=== PATIENT | female | born 1970 | race Caucasian/White ===

== ENCOUNTER 2018-05-31 02:04 | Observation (INO) | payer BC ==
[2018-05-31] MEDS ORDERED: BABY ASPIRIN 81 MG CHEW PO ONE (02:26)
[2018-05-31 02:31] LABS: BASOPHIL % 1.5 % (0.0-0.4); Basophil (Absolute #) 0.12 (0-0.4); Eosinophil % 1.6 % (0.00-5.0); Eosinophil (Absolute #) 0.13 (0-0.5); Granulocyte Absolute (ANC) 4.55 (1.4-6.9); Granulocytes % 55.1 % (36.0-66.0); Hematocrit 34.3 % (35-47); Hemoglobin 10.7 gm/dl (12.0-16.0); Lymphocyte (Absolute #) 2.76 (1.0-4.6); Lymphocytes % 33.5 % (24.0-44.0); Mean Corpuscular Hgb Concent. 31.2 g/dl (32-36); Mean Platelet Volume 9.3 fl (6-9.5); Monocyte (Absolute #) 0.68 (0.0-1.3); Monocytes % 8.3 % (0.0-12.0); Platelet Count 220 K/mm3 (150-450); Red Blood Count 3.77 M/mm3 (4.1-5.4); Red Cell Distribution Width 15.3 % (11.5-14.0); White Blood Count 8.2 K/mm3 (4.0-10.5)
--- NOTE | 2018-05-31 02:32 | ERPHSYRPT ---
- History of Present Illness Time Seen by Provider: 05/31/18 02:27 Historian: patient Exam Limitations: no limitations Physician History: 47-year-old white female with history of gastric bypass arrives with complaint of a pain in her correction right upper quadrant, low chest region radiating up her sternum symptoms have been intermittent for the past 3 months. However today they have been going on since 7:30 this morning. Patient states she has had vomiting she has been short of breath. Patient states pain has been constant. She states the pain radiates to her back. Past medical history patient denies heart problems high blood pressure diabetes kidney problems she states she has no liver problems or cancer. Past surgical history includes gastric bypass, 2, hysterectomy. Social history positive tobacco use patient denies alcohol or illicit drug use. Timing/Duration: other (pain intermittent for the past 2-3 months , she states the pain began today at 7:30 AM and has been essentially constant.) Activities at Onset: none Quality: aching Location: other (right upper quadrant radiating to sternal area and back) Chest Pain Radiation: back Severity of Pain-Max: moderate Severity of Pain-Current: moderate Modifying Factors: Improves With: nothing Associated Symptoms: nausea, vomiting, abdominal pain (right upper quadrant pain ), back pain, No palpitations, No heartburn, No shortness of breath, No cough, No hurts to breathe, No diaphoresis, No chills, No fever, No fatigue, No weakness, No swelling/lump in chest, No syncope, No rash, No headache, No dizziness, No edema Prior Chest Pain/Cardiac Workup: recently seen/treated (patient seen recently by her family doctorfor the same) Nitro Today/Relief: no nitro taken today Aspirin Treatment Today: 81 mg x 4, provided by ED Allergies/Adverse Reactions: No Known Drug Allergies Allergy (Unverified 05/31/18 02:32) Home Medications: Fluoxetine HCl 20 mg [Prozac 20 MG] 20 mg PO DAILY 05/31/18 [History] Hydrocodone Bit/Acetaminophen [[place] 7.5-325 Tablet] 1 tab PO BID PRN 05/31/18 [ History] Lorazepam 0.5 mg [Ativan 0.5 MG] 0.5 mg PO DAILY PRN PRN 05/31/18 [History ] - Review of Systems Constitutional: No Fever, No Chills Eyes: No Symptoms Ears, Nose, & Throat: No Symptoms Respiratory: Dyspnea, No Cough Cardiac: Chest Pain, No Edema, No Syncope Abdominal/Gastrointestinal: Abdominal Pain (right upper quadrant abdominal pain) , Nausea, Vomiting, No Diarrhea, No Constipation, No Hematemesis, No Hematochezia, No Melena, No Dysphagia, No Appetite Changes Genitourinary Symptoms: No Dysuria Musculoskeletal: No Back Pain, No Neck Pain Skin: No Rash Neurological: No Dizziness, No Focal Weakness, No Sensory Changes Psychological: No Symptoms Endocrine: No Symptoms All Other Systems: Reviewed and Negative - Past Medical History Pertinent Past Medical History: Yes Other Medical History: history of gastric bypass - Past Surgical History Gastrointestinal: Other (gastric bypass) Female Surgical History: Hysterectomy, Section - Social History Smoking Status: Current every day smoker - Nursing Vital Signs Nursing Vital Signs: Initial Vital Signs Temperature 97.4 F 05/31/18 02:04 Pulse Rate 62 05/31/18 02:04 Respiratory Rate 12 05/31/18 02:04 Blood Pressure 145/83 05/31/18 02:04 O2 Sat by Pulse Oximetry 100 05/31/18 02:04 Pain Scale Pain Intensity 7 - Physical Exam General Appearance: moderate distress, alert Eye Exam: PERRL/EOMI, eyes nml inspection Ears, Nose, Throat Exam: normal ENT inspection, moist mucous membranes Neck Exam: normal inspection, non-tender, supple, full range of motion Respiratory Exam: normal breath sounds, lungs clear, No respiratory distress Cardiovascular Exam: regular rate/rhythm, normal heart sounds, normal peripheral pulses, capillary refill <2 sec, No murmur, No friction rub, No gallop, No tachycardia, No bradycardia, No irregular, No edema Gastrointestinal/Abdomen Exam: soft, normal bowel sounds, tenderness (right upper quadrant and epigastric tenderness), No distention, No mass, No guarding, No ecchymosis, No pulsatile mass, No rebound, No hernia, No hepatomegaly, No organomegaly, No splenomegaly Back Exam: normal inspection, No CVA tenderness, No vertebral tenderness Extremity Exam: normal inspection, normal range of motion Neurologic Exam: alert, oriented x 3, cooperative, 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, normal mood/affect, sensation nml, No motor deficits Skin Exam: normal color, warm, dry SpO2 Interpretation: normal (94%) - Course Nursing assessment & vital signs reviewed: Yes EKG Interpreted by Me: RATE (60 bpm), NORMAL AXIS, Other (EKG: Sinus arrhythmia , 60 bpm, normal axis, no acute ST or T wave changes, normal EKG) - Radiology Exams Chest X-ray Interpretation: Interpreted by me (no acute disease process noted) Ordered Tests: Active Orders 24 hr Category Date Time Status Veterans Contact Representative STAT Care 05/31/18 02:13 Active EKG-ER Only STAT Care 05/31/18 02:13 Active IV Insertion STAT Care 05/31/18 02:13 Active Pulse Oximetry (ED) STAT Care 05/31/18 02:13 Active CHEST 1 VIEW (PORTABLE) Stat Exams 05/31/18 03:06 Ordered AMYLASE Stat Lab 05/31/18 02:30 Completed CBC W DIFF Stat Lab 05/31/18 02:30 Completed CMP Stat Lab 05/31/18 02:30 Completed D-DIMER QUANTITATION Stat Lab 05/31/18 02:30 Completed LIPASE Stat Lab 05/31/18 02:30 Completed PROTIME WITH INR Stat Lab 05/31/18 02:30 Completed PTT Stat Lab 05/31/18 02:30 Completed TROPONIN Q3H Lab 05/31/18 02:30 Completed TROPONIN Q3H Lab 05/31/18 05:15 Ordered TROPONIN Q3H Lab 05/31/18 08:15 Ordered TROPONIN Q3H Lab 05/31/18 11:15 Ordered TROPONIN Q3H Lab 05/31/18 14:15 Ordered Medication Summary Discontinued Medications Generic Name Dose Route Start Last Admin Trade Name Freq PRN Reason Stop Dose Admin Aspirin 324 mg 05/31/18 02:26 05/31/18 02:35 Baby Aspirin 81 Mg Chew PO 05/31/18 02:27 324 mg STAT ONE Administration Morphine Sulfate 4 mg 05/31/18 03:53 Morphine Sulfate 4 Mg Inj IV 05/31/18 03:54 STAT ONE Ondansetron HCl 4 mg 05/31/18 02:43 05/31/18 02:45 Zofran 4 Mg/2 Ml Vial IV 05/31/18 02:44 4 mg STAT ONE Administration Ondansetron HCl Confirm 05/31/18 02:42 Zofran 4 Mg/2 Ml Vial Administered 05/31/18 02:43 Dose 4 mg .ROUTE .STK-MED ONE Lab/Rad Data: Laboratory Result Diagrams 05/31/18 02:30 05/31/18 02:30 Laboratory Results 05/31/18 05/31/18 05/31/18 Range/Units 02:30 02:30 02:30 WBC (4.0-10.5) K/mm3 RBC (4.1-5.4) M/mm3 Hgb (12.0-16.0) gm/dl Hct (35-47) % MCV (78-100) fl MCH (26-32) pg MCHC (32-36) g/dl RDW (11.5-14.0) % Plt Count (150-450) K/mm3 MPV (6-9.5) fl Gran % (36.0-66.0) % Eos # (Auto) (0-0.5) Absolute Lymphs (auto) (1.0-4.6) Absolute Monos (auto) (0.0-1.3) Lymphocytes % (24.0-44.0) % Monocytes % (0.0-12.0) % Eosinophils % (0.00-5.0) % Basophils % (0.0-0.4) % Absolute Granulocytes (1.4-6.9) Basophils # (0-0.4) PT 12.1 (9.95-12.35) SECONDS INR 1.04 (0.8-3.0) APTT 29.4 (25.3-37.0) SECONDS D-Dimer 256 (215-500) ng/mL Sodium (137-145) mmol/L Potassium (3.5-5.1) mmol/L Chloride (98-107) mmol/L Carbon Dioxide (22-30) mmol/L Anion Gap (5-15) MEQ/L BUN (7-17) mg/dL Creatinine (0.52-1.04) mg/dL Estimated GFR ML/MIN Glucose (74-106) mg/dL Calcium (8.4-10.2) mg/dL Total Bilirubin (0.2-1.3) mg/dL AST (14-36) U/L ALT (0-35) U/L Alkaline Phosphatase (38-126) U/L Troponin I < 0.012 (0.000-0.034) ng/mL Serum Total Protein (6.3-8.2) g/dL Albumin (3.5-5.0) g/dL Amylase 62 (30-110) U/L Lipase 103 (23-300) U/L 05/31/18 05/31/18 Range/Units 02:30 02:30 WBC 8.2 (4.0-10.5) K/mm3 RBC 3.77 L (4.1-5.4) M/mm3 Hgb 10.7 L (12.0-16.0) gm/dl Hct 34.3 L (35-47) % MCV 91.0 (78-100) fl MCH 28.3 (26-32) pg MCHC 31.2 L (32-36) g/dl RDW 15.3 H (11.5-14.0) % Plt Count 220 (150-450) K/mm3 MPV 9.3 (6-9.5) fl Gran % 55.1 (36.0-66.0) % Eos # (Auto) 0.13 (0-0.5) Absolute Lymphs (auto) 2.76 (1.0-4.6) Absolute Monos (auto) 0.68 (0.0-1.3) Lymphocytes % 33.5 (24.0-44.0) % Monocytes % 8.3 (0.0-12.0) % Eosinophils % 1.6 (0.00-5.0) % Basophils % 1.5 (0.0-0.4) % Absolute Granulocytes 4.55 (1.4-6.9) Basophils # 0.12 (0-0.4) PT (9.95-12.35) SECONDS INR (0.8-3.0) APTT (25.3-37.0) SECONDS D-Dimer (215-500) ng/mL Sodium 142 (137-145) mmol/L Potassium 4.6 (3.5-5.1) mmol/L Chloride 102 (98-107) mmol/L Carbon Dioxide 29 (22-30) mmol/L Anion Gap 15.3 H (5-15) MEQ/L BUN 22 H (7-17) mg/dL Creatinine 0.68 (0.52-1.04) mg/dL Estimated GFR > 60.0 ML/MIN Glucose 84 (74-106) mg/dL Calcium 9.6 (8.4-10.2) mg/dL Total Bilirubin 0.20 (0.2-1.3) mg/dL AST 22 (14-36) U/L ALT 18 (0-35) U/L Alkaline Phosphatase 78 (38-126) U/L Troponin I (0.000-0.034) ng/mL Serum Total Protein 7.2 (6.3-8.2) g/dL Albumin 4.5 (3.5-5.0) g/dL Amylase (30-110) U/L Lipase (23-300) U/L - Progress Progress: improved Air Movement: fair Progress Note: 05/31/18 03:56 This is a 47-year-old white female who has a history of gastric bypass in the past she has been having right upper quadrant abdominal pain radiating into her chest off and on for the past 3 months she is apparently seen her family physician for this and labs have been essentially normal. She arrives with complaint of pain which began yesterday and has persisted since yesterday morning which described as an aching in the right upper quadrant epigastric region and up into the sternal region she states she's been having nausea vomiting and shortness of breath associated with this patient's vital signs are stable patient was given aspirin 324 mg orally.. She was also given Zofran for nausea she states she continues with chest pain also pain in the right upper quadrant and epigastric area Chest x-ray on this patient is normal EKG is remarkable for sinus arrhythmia, 60 bpm normal axis, no acute ST or T wave changes essentially normal EKG patient 's d-dimer is within normal limits at 256 patient's CBC is normal with white count 8.2 hemoglobin 10.7 hematocrit 34.3 platelets are 220 amylase and lipase are normal with amylase of 62 lipase 103 patient's troponin is within normal limits at less than 0.012. I've discussed that the patient the will most likely need a rule out and possibility for further testing concerning the patient's right upper quadrant epigastric pain would need to be considered as well. The patient states she would like to stay at this hospital I've contacted Dr. Sims who is net developer contract for the hospital. Will go ahead and place patient on telemetry observation. Diagnosis chest pain,. Epigastric pain, right upper quadrant pain,. Will obtain serial troponins. Provide morphine for pain Zofran for nausea. Dr. Sims will further evaluate the patient while in the hospital. . - Departure Time of Disposition: 04:00 Departure Disposition: Observation Clinical Impression: Epigastric pain, Right upper quadrant abdominal pain Chest pain Qualifiers: Chest pain type: unspecified Qualified Code(s): R07.9 - Chest pain, unspecified Condition: Fair Critical Care Time: No Referrals: CRISTO GUTIERREZ [Primary Care Provider] -
[2018-05-31] MEDS ORDERED: Zofran 4 MG/2 ML VIAL ONE (02:42)
[2018-05-31] MEDS ORDERED: Zofran 4 MG/2 ML VIAL IV ONE (02:43)
[2018-05-31 02:45] LABS: INR 1.04 (0.8-3.0)
[2018-05-31 02:47] LABS: PTT 29.4 SECONDS (25.3-37.0)
[2018-05-31 02:49] LABS: AMYLASE 62 U/L (30-110); LIPASE 103 U/L (23-300)
[2018-05-31 02:50] LABS: Mean Corpuscular Hemoglobin 28.3 pg (26-32)
[2018-05-31 02:51] LABS: ALBUMIN 4.5 g/dL (3.5-5.0); ALKALINE PHOSPHATASE 78 U/L (38-126); ANION GAP 15.3 MEQ/L (5-15); BLOOD UREA NITROGEN 22 mg/dL (7-17); CHLORIDE 102 mmol/L (98-107); Calcium 9.6 mg/dL (8.4-10.2); Carbon Dioxide 29 mmol/L (22-30); Creatinine 1 0.68 mg/dL (0.52-1.04); Glucose 84 mg/dL (74-106); Potassium 4.6 mmol/L (3.5-5.1); SGOT/AST 22 U/L (14-36); SGPT/ALT 18 U/L (0-35); SODIUM 142 mmol/L (137-145); Total Protein 7.2 g/dL (6.3-8.2)
[2018-05-31] MEDS ORDERED: MORPHINE SULFATE 4 MG INJ IV ONE (03:53)
[2018-05-31] MEDS ORDERED: MORPHINE SULFATE 4 MG INJ ONE (03:59)
[2018-05-31] MEDS ORDERED: Phenergan 25 MG INJ ONE (04:22)
[2018-05-31] MEDS ORDERED: Zofran 4 MG/2 ML VIAL IV PRN (04:58)
[2018-05-31] MEDS: Sodium Chloride 0.9% 1000 ML 1,000 ML IV SCH ×2 (06:05→22:42)
[2018-05-31] MEDS: NICODERM CQ 14 MG TOP SCH (06:13)
[2018-05-31] MEDS: MORPHINE SULFATE 4 MG INJ IV PRN ×3 (08:25→20:08)
--- NOTE | 2018-05-31 10:46 | XRAY ---
Indication: Chest pain. Comparison: None Portable apical lordotic chest demonstrates well circumscribed benign macrocalcifications overlying the right mid lower lung either calcified granulomas, bony thorax, or combination. Remaining heart, lungs, and bony thorax normal.
[2018-05-31] MEDS ORDERED: Ativan 0.5 MG PO PRN (13:22)
--- NOTE | 2018-05-31 14:35 | PCM.HP ---
History of Present Illness - Chief Complaint Chief Complaint: chest pain, epigastric pain and abdominal pain History of Present Illness: is a 47 year old female pt of Dr. Kramer in [place], with hx gastric bypass surgery, who was admitted through the ER with RUQ pain radiating to the chest. Her troponins have been negative x 3. She has had RUQ pain for months but has not had an ultrasound. The pain is sharp, 9/10 and radiates into the chest and upper back; she does have some associated Vomiting and palpitations. Intermittent. Currently pain is 6/10. For some time she has noticed that when the food hits her belly, she gets nauseated and vomits. Her gastric bypass surgery was in 2006. She has had several EGDs since then; her last has been over 1 yr ago (done in [facility] with her surgeon). - Review of Systems Constitutional: Chills, Weight Loss (150 to 120 lb in past 2 mo) Neurological: Dizziness (with standing in the shower at times or when she first stands up at times) Psychological: Depression (hx of, but no recent exacerbation of), No Anxiety, No Suicidal Ideations All Other Systems: Reviewed and Negative Medications & Allergies Home Medications: Home Medication List Fluoxetine HCl 20 mg [Prozac 20 MG] 20 mg PO DAILY 05/31/18 [History Confirmed 05/31/18] Hydrocodone Bit/Acetaminophen [[place] 7.5-325 Tablet] 1 tab PO BID PRN 05/31/18 [ History Confirmed 05/31/18] Lorazepam 0.5 mg [Ativan 0.5 MG] 0.5 mg PO DAILY PRN PRN 05/31/18 [ History Confirmed 05/31/18] Allergies/Adverse Reactions: Allergies Allergy/AdvReac Type Severity Reaction Status Date / Time No Known Drug Allergies Allergy Unverified 05/31/18 02:32 - Past Medical History Past Medical History: Yes Neurological History: No Pertinent History ENT History: No Pertinent History Cardiac History: No Pertinent History Respiratory History: No Pertinent History Endocrine Medical History: No Pertinent History Musculoskelatal History: No Pertinent History GI Medical History: Other History: No Pertinent History Pyscho-Social History: No Pertinent History Reproductive Disorders: No Pertinent History Comment: history of gastric bypass - Female History Are you now?: No - Past Surgical History Past Surgical History: Yes Neuro Surgical History: No Pertinent History Cardiac History: No Pertinent History Respiratory Surgery: No Pertinent History GI Surgical History: Other Genitourinary Surgical Hx: No Pertinent History Musculskeletal Surgical Hx: Other Female Surgical History: Hysterectomy, Section Other Surgical History: gastric bypass 2006. back surgery. neck surgery - Social History Smoking Status: Current every day smoker How long have you smoked: 1/2 pack Exposure to second hand smoke: Yes Alcohol: None Drug Use: none - Physical Exam Vital Signs: Vital Signs - 24 hr Temp Pulse Pulse Resp BP Pulse Ox 05/31/18 11:45 98.4 F 63 18 123/61 99 05/31/18 08:00 97.8 F 58 L 18 114/59 96 05/31/18 05:43 98.0 F 52 L 16 125/60 99 05/31/18 04:58 99 05/31/18 04:00 61 16 139/84 98 05/31/18 03:50 60 16 153/84 100 05/31/18 03:04 59 L 15 153/84 100 05/31/18 02:13 100 05/31/18 02:04 97.4 F 62 62 12 145/83 100 General Appearance: mild distress, alert Neurologic Exam: oriented x 3, cooperative Eye Exam: eyes nml inspection Ears, Nose, Throat Exam: moist mucous membranes Neck Exam: normal inspection, non-tender, No lymphadenopathy Respiratory Exam: normal breath sounds, chest tenderness, No crackles/rales, No rhonchi, No wheezing Cardiovascular Exam: regular rate/rhythm, normal heart sounds, No murmur Gastrointestinal/Abdomen Exam: soft, normal bowel sounds, tenderness (RUQ and epigastrum), No distention, No mass, No guarding, No rebound Back Exam: normal inspection, No CVA tenderness Extremity Exam: No pedal edema, No swelling Skin Exam: normal color, warm, dry, No rash Results - Labs Lab/Micro Results: Lab Results-Last 24 Hours 05/31/18 05/31/18 05/31/18 Range/Units 02:30 02:30 02:30 WBC 8.2 (4.0-10.5) K/mm3 RBC 3.77 L (4.1-5.4) M/mm3 Hgb 10.7 L (12.0-16.0) gm/dl Hct 34.3 L (35-47) % MCV 91.0 (78-100) fl MCH 28.3 (26-32) pg MCHC 31.2 L (32-36) g/dl RDW 15.3 H (11.5-14.0) % Plt Count 220 (150-450) K/mm3 MPV 9.3 (6-9.5) fl Gran % 55.1 (36.0-66.0) % Eos # (Auto) 0.13 (0-0.5) Absolute Lymphs (auto) 2.76 (1.0-4.6) Absolute Monos (auto) 0.68 (0.0-1.3) Lymphocytes % 33.5 (24.0-44.0) % Monocytes % 8.3 (0.0-12.0) % Eosinophils % 1.6 (0.00-5.0) % Basophils % 1.5 (0.0-0.4) % Absolute Granulocytes 4.55 (1.4-6.9) Basophils # 0.12 (0-0.4) PT 12.1 (9.95-12.35) SECONDS INR 1.04 (0.8-3.0) APTT 29.4 (25.3-37.0) SECONDS D-Dimer 256 (215-500) ng/mL Sodium 142 (137-145) mmol/L Potassium 4.6 (3.5-5.1) mmol/L Chloride 102 (98-107) mmol/L Carbon Dioxide 29 (22-30) mmol/L Anion Gap 15.3 H (5-15) MEQ/L BUN 22 H (7-17) mg/dL Creatinine 0.68 (0.52-1.04) mg/dL Estimated GFR > 60.0 ML/MIN Glucose 84 (74-106) mg/dL Calcium 9.6 (8.4-10.2) mg/dL Total Bilirubin 0.20 (0.2-1.3) mg/dL AST 22 (14-36) U/L ALT 18 (0-35) U/L Alkaline Phosphatase 78 (38-126) U/L Troponin I (0.000-0.034) ng/mL Serum Total Protein 7.2 (6.3-8.2) g/dL Albumin 4.5 (3.5-5.0) g/dL Amylase (30-110) U/L Lipase (23-300) U/L 05/31/18 05/31/18 05/31/18 Range/Units 02:30 02:30 05:15 WBC (4.0-10.5) K/mm3 RBC (4.1-5.4) M/mm3 Hgb (12.0-16.0) gm/dl Hct (35-47) % MCV (78-100) fl MCH (26-32) pg MCHC (32-36) g/dl RDW (11.5-14.0) % Plt Count (150-450) K/mm3 MPV (6-9.5) fl Gran % (36.0-66.0) % Eos # (Auto) (0-0.5) Absolute Lymphs (auto) (1.0-4.6) Absolute Monos (auto) (0.0-1.3) Lymphocytes % (24.0-44.0) % Monocytes % (0.0-12.0) % Eosinophils % (0.00-5.0) % Basophils % (0.0-0.4) % Absolute Granulocytes (1.4-6.9) Basophils # (0-0.4) PT (9.95-12.35) SECONDS INR (0.8-3.0) APTT (25.3-37.0) SECONDS D-Dimer (215-500) ng/mL Sodium (137-145) mmol/L Potassium (3.5-5.1) mmol/L Chloride (98-107) mmol/L Carbon Dioxide (22-30) mmol/L Anion Gap (5-15) MEQ/L BUN (7-17) mg/dL Creatinine (0.52-1.04) mg/dL Estimated GFR ML/MIN Glucose (74-106) mg/dL Calcium (8.4-10.2) mg/dL Total Bilirubin (0.2-1.3) mg/dL AST (14-36) U/L ALT (0-35) U/L Alkaline Phosphatase (38-126) U/L Troponin I < 0.012 < 0.012 (0.000-0.034) ng/mL Serum Total Protein (6.3-8.2) g/dL Albumin (3.5-5.0) g/dL Amylase 62 (30-110) U/L Lipase 103 (23-300) U/L 05/31/18 05/31/18 05/31/18 Range/Units 05:15 08:13 11:16 WBC (4.0-10.5) K/mm3 RBC (4.1-5.4) M/mm3 Hgb (12.0-16.0) gm/dl Hct (35-47) % MCV (78-100) fl MCH (26-32) pg MCHC (32-36) g/dl RDW (11.5-14.0) % Plt Count (150-450) K/mm3 MPV (6-9.5) fl Gran % (36.0-66.0) % Eos # (Auto) (0-0.5) Absolute Lymphs (auto) (1.0-4.6) Absolute Monos (auto) (0.0-1.3) Lymphocytes % (24.0-44.0) % Monocytes % (0.0-12.0) % Eosinophils % (0.00-5.0) % Basophils % (0.0-0.4) % Absolute Granulocytes (1.4-6.9) Basophils # (0-0.4) PT (9.95-12.35) SECONDS INR (0.8-3.0) APTT (25.3-37.0) SECONDS D-Dimer (215-500) ng/mL Sodium (137-145) mmol/L Potassium (3.5-5.1) mmol/L Chloride (98-107) mmol/L Carbon Dioxide (22-30) mmol/L Anion Gap (5-15) MEQ/L BUN (7-17) mg/dL Creatinine (0.52-1.04) mg/dL Estimated GFR ML/MIN Glucose (74-106) mg/dL Calcium (8.4-10.2) mg/dL Total Bilirubin (0.2-1.3) mg/dL AST (14-36) U/L ALT (0-35) U/L Alkaline Phosphatase (38-126) U/L Troponin I < 0.012 < 0.012 (0.000-0.034) ng/mL Serum Total Protein (6.3-8.2) g/dL Albumin (3.5-5.0) g/dL Amylase (30-110) U/L Lipase 120 (23-300) U/L - Radiology Impressions Radiology Exams & Impressions: Radiology Procedures Category Date Time Status ABDOMEN AND PELVIS W CONTRAST [CT] Routine Exams 05/31/18 13:49 Ordered CHEST 1 VIEW (PORTABLE) Stat Exams 05/31/18 03:06 Completed Assessment/Plan (1) Right upper quadrant abdominal pain Current Visit: Yes Status: Acute Assessment & Plan: Most likely gallbladder etiology, but we did discuss that with the hx of gastric bypass she may have a stomach issue and need another EGD (likely in [place]). Since today is Friday, u/s is not available. Will do CT abd/ pelvis now. May need U/S gallbladder in the morning. Code(s): R10.11 - RIGHT UPPER QUADRANT PAIN (2) Chest pain Current Visit: Yes Status: Acute Qualifiers: Chest pain type: unspecified Qualified Code(s): R07.9 - Chest pain, unspecified Assessment & Plan: LA being ruled out (troponins neg x 3). Code(s): R07.9 - CHEST PAIN, UNSPECIFIED (3) S/P gastric bypass Current Visit: Yes Status: Chronic Assessment & Plan: Done in 2006 at [facility]. Code(s): Z98.84 - BARIATRIC SURGERY STATUS (4) Depression Current Visit: Yes Status: Chronic Qualifiers: Depression Type: unspecified Qualified Code(s): F32.9 - Major depressive disorder, single episode, unspecified Assessment & Plan: no exacerbation at this time; pt doing well on home meds. Code(s): F32.9 - MAJOR DEPRESSIVE DISORDER, SINGLE EPISODE, UNSPECIFIED
[2018-05-31] MEDS: Prozac 20 MG PO SCH (15:47)
[2018-05-31] MEDS: Phenergan 25 MG INJ IV PRN ×2 (15:47→23:25)
[2018-05-31] MEDS: NORCO 7.5/325 MG TAB PO PRN (15:48)
[2018-05-31] MEDS: Zofran 4 MG/2 ML VIAL IV PRN (20:09)
[2018-06-01] MEDS: MORPHINE SULFATE 4 MG INJ IV PRN ×3 (00:01→22:11)
[2018-06-01] MEDS ORDERED: Sodium Chloride 0.9% 500 ML 500 ML IV ONE (01:06)
[2018-06-01] MEDS ORDERED: SUBLIMAZE 100 MCG/2 ML IV PRN (01:11)
[2018-06-01] MEDS ORDERED: Zithromax 500 MG/ 250 ML NaCl Premix 500 MG/250 ML IVPB IV SCH ×2 (02:00→22:00)
[2018-06-01] MEDS ORDERED: ROCEPHIN 1 Gm-D5w 50 ml Bag** 1 G/50 ML IVPB IV SCH ×2 (02:00→22:00)
[2018-06-01 06:00] LABS: ALBUMIN 3.1 g/dL (3.5-5.0); ALKALINE PHOSPHATASE 60 U/L (38-126); AMYLASE 48 U/L (30-110); ANION GAP 9.1 MEQ/L (5-15); BLOOD UREA NITROGEN 10 mg/dL (7-17); CHLORIDE 107 mmol/L (98-107); Calcium 8.4 mg/dL (8.4-10.2); Carbon Dioxide 28 mmol/L (22-30); Glucose 76 mg/dL (74-106); LIPASE 18 U/L (23-300); Potassium 4.1 mmol/L (3.5-5.1); SGOT/AST 14 U/L (14-36); SGPT/ALT 14 U/L (0-35); SODIUM 140 mmol/L (137-145); Total Protein 5.4 g/dL (6.3-8.2)
[2018-06-01 06:14] LABS: BASOPHIL % 1.9 % (0.0-0.4); Basophil (Absolute #) 0.08 (0-0.4); Eosinophil % 3.3 % (0.00-5.0); Eosinophil (Absolute #) 0.14 (0-0.5); Granulocyte Absolute (ANC) 2.14 (1.4-6.9); Granulocytes % 49.8 % (36.0-66.0); Hematocrit 30.1 % (35-47); Hemoglobin 9.2 gm/dl (12.0-16.0); Lymphocyte (Absolute #) 1.55 (1.0-4.6); Lymphocytes % 36.1 % (24.0-44.0); Mean Cell Volume 93.8 fl (78-100); Mean Corpuscular Hgb Concent. 30.6 g/dl (32-36); Mean Platelet Volume 9.5 fl (6-9.5); Monocyte (Absolute #) 0.38 (0.0-1.3); Monocytes % 8.9 % (0.0-12.0); Platelet Count 162 K/mm3 (150-450); Red Blood Count 3.21 M/mm3 (4.1-5.4); Red Cell Distribution Width 15.4 % (11.5-14.0); White Blood Count 4.3 K/mm3 (4.0-10.5)
[2018-06-01 06:16] LABS: Mean Corpuscular Hemoglobin 28.6 pg (26-32)
[2018-06-01] MEDS: NICODERM CQ 14 MG TOP SCH (06:50)
[2018-06-01] MEDS: Sodium Chloride 0.9% 1000 ML 1,000 ML IV SCH (08:19)
[2018-06-01] MEDS: Zofran 4 MG/2 ML VIAL IV PRN ×2 (08:19→16:21)
--- NOTE | 2018-06-01 08:41 | XRAY ---
Indication: Chest and abdomen pain 2 months. Nausea and vomiting. Multiple contiguous axial images obtained through the abdomen and pelvis using 80 cc Isovue 370 contrast. Enteric contrast also used. Comparison: None Lung bases demonstrates partially visualized hazy interstitial alveolar opacity in the medial right middle lobe. No consolidation or effusion. Heart is not enlarged. Previous gastric bypass surgery and hysterectomy. Contrasted stomach and bowel loops appear nonobstructed. Normal appendix. No free fluid/air. Remaining liver, gallbladder, pancreas, spleen, adrenal glands, kidneys, ureters, bladder, and aorta appear unremarkable. Mild aortoiliac calcifications. No AAA or pathologic retroperitoneal lymphadenopathy. Osseous structures intact with mild degenerative changes throughout the spine and previous L4-L5 laminectomy. No ventral or inguinal hernias. Impression: 1. Incompletely visualized right middle lobe interstitial alveolar opacity. 2. Remaining CT abdomen/pelvis with contrast exam is negative. Comment: Preliminary interpretation was made by [facility]. No critical discrepancy. CT DI 16.22
--- NOTE | 2018-06-01 08:41 | XRAY ---
Indication: Right upper quadrant pain. Two-dimensional gallbladder sonogram performed. Comparison: None Visualized gallbladder, pancreas, liver, and right kidney appear sonographically normal. Common bile duct measures 2.9 mm. Right kidney measures 9.7 cm in length. No ascites. Impression: Negative gallbladder sonogram.
--- NOTE | 2018-06-01 09:01 | PCM.NOTE ---
Date and Time: 06/01/18855 Subjective Assessment: Pt still having 6/10 abd pain in RUQ. Was given pain meds last night with BP drop into th 70s systolic, so she was swithced to IV fentanyl, which she said does not work as well and gives her a KELLY. Her CT showed RML opacity but otherwise negative. U/S gallbladder pending. I have discussed w pt, if it is neg will do HIDA scan. If that is neg, I will discuss with her bariatric surgeon, Dr. Moody Tejada, about doing an EGD. Objective Exam General Appearance: mild distress, alert Neurologic Exam: oriented x 3, cooperative Skin Exam: normal color, warm, dry, No rash Ears, Nose, Throat Exam: moist mucous membranes Respiratory Exam: normal breath sounds, lungs clear, No crackles/rales, No rhonchi, No wheezing Cardiovascular Exam: regular rate/rhythm, normal heart sounds, No murmur Gastrointestinal/Abdomen Exam: soft, tenderness (RUQ), No normal bowel sounds ( hypoactive but present), No distention, No mass, No guarding, No rebound Extremity Exam: normal inspection, No pedal edema, No swelling OBJECTIVE DATA Vital Signs: Vital Signs - 24 hr Temp Pulse Resp BP BP Pulse Ox 06/01/18 08:00 99.3 F 62 18 105/59 94 L 06/01/18 04:25 98.4 F 62 14 91/54 94 L 06/01/18 02:00 98/50 06/01/18 01:00 70/40 06/01/18 00:05 97.8 F 58 L 14 97/56 97 05/31/18 20:14 98.2 F 62 16 113/64 98 05/31/18 16:00 98.0 F 52 L 18 115/67 96 05/31/18 11:45 98.4 F 63 18 123/61 99 Pain Assessment - Last Documented Pain Intensity 7 Pain Scale Used 0-10 Pain Scale Intake and Output: Intake & Output 05/29/18 05/30/18 05/31/18 06/01/18 11:59 11:59 11:59 11:59 Intake Total 0 2056 Output Total 850 Balance 0 1206 Weight 57.1 kg 63.4 kg Lab Results: Lab Results-Last 24 Hours 05/31/18 05/31/18 05/31/18 Range/Units 08:13 11:16 14:14 WBC (4.0-10.5) K/mm3 RBC (4.1-5.4) M/mm3 Hgb (12.0-16.0) gm/dl Hct (35-47) % MCV (78-100) fl MCH (26-32) pg MCHC (32-36) g/dl RDW (11.5-14.0) % Plt Count (150-450) K/mm3 MPV (6-9.5) fl Gran % (36.0-66.0) % Eos # (Auto) (0-0.5) Absolute Lymphs (auto) (1.0-4.6) Absolute Monos (auto) (0.0-1.3) Lymphocytes % (24.0-44.0) % Monocytes % (0.0-12.0) % Eosinophils % (0.00-5.0) % Basophils % (0.0-0.4) % Absolute Granulocytes (1.4-6.9) Basophils # (0-0.4) Sodium (137-145) mmol/L Potassium (3.5-5.1) mmol/L Chloride (98-107) mmol/L Carbon Dioxide (22-30) mmol/L Anion Gap (5-15) MEQ/L BUN (7-17) mg/dL Creatinine (0.52-1.04) mg/dL Estimated GFR ML/MIN Glucose (74-106) mg/dL Calcium (8.4-10.2) mg/dL Total Bilirubin (0.2-1.3) mg/dL AST (14-36) U/L ALT (0-35) U/L Alkaline Phosphatase (38-126) U/L Troponin I < 0.012 < 0.012 < 0.012 (0.000-0.034) ng/mL Serum Total Protein (6.3-8.2) g/dL Albumin (3.5-5.0) g/dL Amylase (30-110) U/L Lipase (23-300) U/L 06/01/18 06/01/18 Range/Units 05:18 05:18 WBC 4.3 (4.0-10.5) K/mm3 RBC 3.21 L (4.1-5.4) M/mm3 Hgb 9.2 L (12.0-16.0) gm/dl Hct 30.1 L (35-47) % MCV 93.8 (78-100) fl MCH 28.6 (26-32) pg MCHC 30.6 L (32-36) g/dl RDW 15.4 H (11.5-14.0) % Plt Count 162 (150-450) K/mm3 MPV 9.5 (6-9.5) fl Gran % 49.8 (36.0-66.0) % Eos # (Auto) 0.14 (0-0.5) Absolute Lymphs (auto) 1.55 (1.0-4.6) Absolute Monos (auto) 0.38 (0.0-1.3) Lymphocytes % 36.1 (24.0-44.0) % Monocytes % 8.9 (0.0-12.0) % Eosinophils % 3.3 (0.00-5.0) % Basophils % 1.9 (0.0-0.4) % Absolute Granulocytes 2.14 (1.4-6.9) Basophils # 0.08 (0-0.4) Sodium 140 (137-145) mmol/L Potassium 4.1 (3.5-5.1) mmol/L Chloride 107 (98-107) mmol/L Carbon Dioxide 28 (22-30) mmol/L Anion Gap 9.1 (5-15) MEQ/L BUN 10 (7-17) mg/dL Creatinine 0.60 (0.52-1.04) mg/dL Estimated GFR > 60.0 ML/MIN Glucose 76 (74-106) mg/dL Calcium 8.4 (8.4-10.2) mg/dL Total Bilirubin 0.10 L (0.2-1.3) mg/dL AST 14 (14-36) U/L ALT 14 (0-35) U/L Alkaline Phosphatase 60 (38-126) U/L Troponin I (0.000-0.034) ng/mL Serum Total Protein 5.4 L (6.3-8.2) g/dL Albumin 3.1 L (3.5-5.0) g/dL Amylase 48 (30-110) U/L Lipase 18 L (23-300) U/L Radiology Exams: Radiology Procedures Category Date Time Status ABDOMEN AND PELVIS W CONTRAST [CT] Routine Exams 05/31/18 13:49 Completed CHEST 1 VIEW (PORTABLE) Stat Exams 05/31/18 03:06 Completed GALLBLADDER [US] Urgent Exams 06/01/18 08:00 Completed Assessment/Plan (1) Right upper quadrant abdominal pain Current Visit: Yes Status: Acute Assessment & Plan: Await GB u/s - if neg do HIDA. If neg, consult wiht surgeon (in [place]) about possible EGD. Will add protonix IV. Code(s): R10.11 - RIGHT UPPER QUADRANT PAIN (2) RML pneumonia Current Visit: Yes Status: Acute Assessment & Plan: on CT scan - treating with IV rocephin and zithromax. she has had some cough. Code(s): J18.1 - LOBAR PNEUMONIA, UNSPECIFIED ORGANISM (3) Chest pain Current Visit: Yes Status: Acute Qualifiers: Chest pain type: unspecified Qualified Code(s): R07.9 - Chest pain, unspecified Assessment & Plan: NM ruled out with troponin neg x 5. Code(s): R07.9 - CHEST PAIN, UNSPECIFIED (4) S/P gastric bypass Current Visit: Yes Status: Chronic Code(s): Z98.84 - BARIATRIC SURGERY STATUS (5) Depression Current Visit: Yes Status: Chronic Qualifiers: Depression Type: unspecified Qualified Code(s): F32.9 - Major depressive disorder, single episode, unspecified Code(s): F32.9 - MAJOR DEPRESSIVE DISORDER, SINGLE EPISODE, UNSPECIFIED
[2018-06-01] MEDS: Prozac 20 MG PO SCH (09:46)
[2018-06-01] MEDS: PROTONIX 40 MG IV IV SCH (09:46)
[2018-06-01] MEDS: NORCO 7.5/325 MG TAB PO PRN ×2 (09:50→21:20)
[2018-06-01] MEDS ORDERED: TYLENOL 325 MG PO PRN (16:21)
[2018-06-01] MEDS: Phenergan 25 MG INJ IV PRN (22:19)
[2018-06-02] MEDS: Sodium Chloride 0.9% 1000 ML 1,000 ML IV SCH (04:23)
[2018-06-02] MEDS: NICODERM CQ 14 MG TOP SCH (05:44)
[2018-06-02 08:02] LABS: Basophil (Absolute #) 0.08 (0-0.4); Eosinophil % 2.9 % (0.00-5.0); Eosinophil (Absolute #) 0.12 (0-0.5); Granulocytes % 46.5 % (36.0-66.0); Hematocrit 28.8 % (35-47); Hemoglobin 8.6 gm/dl (12.0-16.0); Lymphocytes % 39.1 % (24.0-44.0); Mean Cell Volume 93.8 fl (78-100); Mean Corpuscular Hgb Concent. 29.9 g/dl (32-36); Mean Platelet Volume 9.2 fl (6-9.5); Monocyte (Absolute #) 0.39 (0.0-1.3); Monocytes % 9.5 % (0.0-12.0); Platelet Count 142 K/mm3 (150-450); Red Blood Count 3.07 M/mm3 (4.1-5.4); Red Cell Distribution Width 15.3 % (11.5-14.0); White Blood Count 4.1 K/mm3 (4.0-10.5)
--- NOTE | 2018-06-02 08:20 | PCM.NOTE ---
Date and Time: 06/02/18816 Subjective Assessment: Pt tolerated po last night. Had pain meds yesterday and none overnight, and did not have abd pain. This morning RUQ pain is 4-5/10. - Review of Systems Constitutional: No Fever Abdominal/Gastrointestinal: Abdominal Pain Objective Exam General Appearance: no apparent distress, alert Neurologic Exam: oriented x 3, cooperative Skin Exam: normal color, warm, dry, No rash Ears, Nose, Throat Exam: moist mucous membranes Neck Exam: normal inspection Respiratory Exam: normal breath sounds, lungs clear, No crackles/rales, No rhonchi, No wheezing Cardiovascular Exam: regular rate/rhythm, normal heart sounds, No murmur Gastrointestinal/Abdomen Exam: soft, normal bowel sounds, tenderness ( particularly in RUQ; some in RLQ, epigastrum), No distention, No mass, No guarding, No rebound Extremity Exam: normal inspection, No pedal edema, No swelling Back Exam: normal inspection, No rash OBJECTIVE DATA Vital Signs: Vital Signs - 24 hr Temp Pulse Resp BP Pulse Ox 06/02/18 07:11 99 F 58 L 18 115/61 96 06/02/18 04:00 98.5 F 56 L 16 112/61 95 06/02/18 00:00 98.3 F 52 L 16 112/56 95 06/01/18 19:32 98.7 F 58 L 18 110/62 100 06/01/18 16:00 98.8 F 53 L 18 150/74 98 06/01/18 12:00 98.8 F 60 18 109/55 93 L Pain Assessment - Last Documented Pain Intensity 4 Pain Scale Used 0-10 Pain Scale Intake and Output: Intake & Output 05/30/18 05/31/18 06/01/18 06/02/18 11:59 11:59 11:59 11:59 Intake Total 0 2056 3262 Output Total 850 1700 Balance 0 1206 1562 Weight 57.1 kg 63.4 kg 61.7 kg Lab Results: Lab Results-Last 24 Hours 06/02/18 Range/Units 07:34 WBC 4.1 (4.0-10.5) K/mm3 RBC 3.07 L (4.1-5.4) M/mm3 Hgb 8.6 L (12.0-16.0) gm/dl Hct 28.8 L (35-47) % MCV 93.8 (78-100) fl MCH 28.0 (26-32) pg MCHC 29.9 L (32-36) g/dl RDW 15.3 H (11.5-14.0) % Plt Count 142 L (150-450) K/mm3 MPV 9.2 (6-9.5) fl Gran % 46.5 (36.0-66.0) % Eos # (Auto) 0.12 (0-0.5) Absolute Lymphs (auto) 1.60 (1.0-4.6) Absolute Monos (auto) 0.39 (0.0-1.3) Lymphocytes % 39.1 (24.0-44.0) % Monocytes % 9.5 (0.0-12.0) % Eosinophils % 2.9 (0.00-5.0) % Basophils % 2.0 (0.0-0.4) % Absolute Granulocytes 1.90 (1.4-6.9) Basophils # 0.08 (0-0.4) Radiology Exams: Radiology Procedures Category Date Time Status ABDOMEN AND PELVIS W CONTRAST [CT] Routine Exams 05/31/18 13:49 Completed GALLBLADDER [US] Urgent Exams 06/01/18 08:00 Completed HIDA-GALL BLADDER [NUCMED] Urgent Exams 06/02/18 10:00 Ordered Assessment/Plan (1) Right upper quadrant abdominal pain Current Visit: Yes Status: Acute Onset Date: ~05/31/18 Assessment & Plan: HIDA to be done today. If HIDA is positive, will consult surgery here for possible cholecystectomy tomorrow. If HIDA is negative, will advance diet, and if tolerating that, will d/c to home after discussing her with her gastric bypass surgeon. Code(s): R10.11 - RIGHT UPPER QUADRANT PAIN (2) RML pneumonia Current Visit: Yes Status: Acute Assessment & Plan: continue rocephin and zithromax (day #3). Code(s): J18.1 - LOBAR PNEUMONIA, UNSPECIFIED ORGANISM (3) Chest pain Current Visit: Yes Status: Resolved Onset Date: ~05/31/18 Qualifiers: Chest pain type: unspecified Qualified Code(s): R07.9 - Chest pain, unspecified Code(s): R07.9 - CHEST PAIN, UNSPECIFIED (4) S/P gastric bypass Current Visit: Yes Status: Chronic Code(s): Z98.84 - BARIATRIC SURGERY STATUS (5) Depression Current Visit: Yes Status: Chronic Qualifiers: Depression Type: unspecified Qualified Code(s): F32.9 - Major depressive disorder, single episode, unspecified Code(s): F32.9 - MAJOR DEPRESSIVE DISORDER, SINGLE EPISODE, UNSPECIFIED
[2018-06-02 09:11] LABS: ALBUMIN 3.2 g/dL (3.5-5.0); ALKALINE PHOSPHATASE 55 U/L (38-126); ANION GAP 9.3 MEQ/L (5-15); BLOOD UREA NITROGEN 9 mg/dL (7-17); CHLORIDE 106 mmol/L (98-107); Calcium 8.6 mg/dL (8.4-10.2); Carbon Dioxide 29 mmol/L (22-30); Creatinine 1 0.59 mg/dL (0.52-1.04); Glucose 81 mg/dL (74-106); Potassium 4.2 mmol/L (3.5-5.1); SGOT/AST 14 U/L (14-36); SGPT/ALT 13 U/L (0-35); SODIUM 140 mmol/L (137-145); Total Protein 5.5 g/dL (6.3-8.2)
[2018-06-02] MEDS: PROTONIX 40 MG IV IV SCH (09:49)
[2018-06-02] MEDS ORDERED: MORPHINE SULFATE 4 MG INJ IV ONE (12:15)
--- NOTE | 2018-06-02 14:19 | XRAY ---
Indication: Right upper quadrant pain and vomiting 6 months. Negative gallbladder sonogram. Comparison: None Patient received 5.4 mCi technetium 99 Choletec. Immediate anterior planar imaging was performed for 80 minutes. Normal hepatic activity on the first image. Normal biliary and biliary to bowel activity within 10 minutes. No gallbladder activity after 80 minutes. 2.5 mg morphine sulfate was then administered with subsequent normal gallbladder activity. Ejection fraction not calculated due to morphine sulfate augmentation. Impression: Negative HIDA scan.
[2018-06-02] MEDS: MORPHINE SULFATE 4 MG INJ IV PRN ×2 (14:26→18:38)
[2018-06-02] MEDS: Zofran 4 MG/2 ML VIAL IV PRN ×2 (14:32→18:38)
[2018-06-02] MEDS: Prozac 20 MG PO SCH (15:22)
[2018-06-02] MEDS: NORCO 7.5/325 MG TAB PO PRN (15:24)
--- NOTE | 2018-06-02 18:54 | PCM.DS ---
Discharge Summary Date of Admission: 05/31/18 04:57 Admitting Physician: CRISTO KRAMER Primary Care Provider: CRISTO KRAMER Allergies Allergies No Known Drug Allergies Allergy (Unverified 05/31/18 02:32) Hospital Summary - Hospital Course Hospital Course: Pt is 47 [address] pt [address] Kramer with PMHx gastric bypass surgery who came to ER c /o RUQ pain. Ruled out for [place]. D-Dimer negative. Gallbladder u/s and HIDA scan were negative. She was found to have RML airspace opacity on CT. Started on IV zithromax and rocephin, and will be sent home on po cefdinir for 7 more days. Her WBC count was nl throughout. Her hgb dropped from 10.5 to 8.5 which I think was probably dilutional. Considered gastric etiology but did not do EGD due to her history of surgery. I spoke with the office of her gastric bypass surgeon and they have set her up for an outpatient appointment. This morning she had told me that she had no pain overnight. This evening she tolerated a bland diet and will be discharged to home. - Vitals & Intake/Output Vital Signs: Vital Signs Temperature 98.1 F 06/02/18 14:20 Pulse Rate 88 06/02/18 14:20 Respiratory Rate 20 06/02/18 14:20 Blood Pressure 158/75 06/02/18 14:20 O2 Sat by Pulse Oximetry 99 06/02/18 14:20 Intake & Output: Intake & Output 05/31/18 06/01/18 06/02/18 06/03/18 11:59 11:59 11:59 11:59 Intake Total 0 2056 3262 720 Output Total 850 1700 800 Balance 0 1206 1562 -80 Weight 57.1 kg 63.4 kg 61.7 kg - Lab Result Diagrams: 06/02/18 07:34 06/02/18 07:34 Lab Results-Last 24 Hrs: Lab Results-Last 24 Hours 06/02/18 06/02/18 Range/Units 07:34 07:34 WBC 4.1 (4.0-10.5) K/mm3 RBC 3.07 L (4.1-5.4) M/mm3 Hgb 8.6 L (12.0-16.0) gm/dl Hct 28.8 L (35-47) % MCV 93.8 (78-100) fl MCH 28.0 (26-32) pg MCHC 29.9 L (32-36) g/dl RDW 15.3 H (11.5-14.0) % Plt Count 142 L (150-450) K/mm3 MPV 9.2 (6-9.5) fl Gran % 46.5 (36.0-66.0) % Eos # (Auto) 0.12 (0-0.5) Absolute Lymphs (auto) 1.60 (1.0-4.6) Absolute Monos (auto) 0.39 (0.0-1.3) Lymphocytes % 39.1 (24.0-44.0) % Monocytes % 9.5 (0.0-12.0) % Eosinophils % 2.9 (0.00-5.0) % Basophils % 2.0 (0.0-0.4) % Absolute Granulocytes 1.90 (1.4-6.9) Basophils # 0.08 (0-0.4) Sodium 140 (137-145) mmol/L Potassium 4.2 (3.5-5.1) mmol/L Chloride 106 (98-107) mmol/L Carbon Dioxide 29 (22-30) mmol/L Anion Gap 9.3 (5-15) MEQ/L BUN 9 (7-17) mg/dL Creatinine 0.59 (0.52-1.04) mg/dL Estimated GFR > 60.0 ML/MIN Glucose 81 (74-106) mg/dL Calcium 8.6 (8.4-10.2) mg/dL Total Bilirubin 0.20 (0.2-1.3) mg/dL AST 14 (14-36) U/L ALT 13 (0-35) U/L Alkaline Phosphatase 55 (38-126) U/L Serum Total Protein 5.5 L (6.3-8.2) g/dL Albumin 3.2 L (3.5-5.0) g/dL - Radiology Exams Ordered Rad Exams-Entire Visit: Radiology Procedures Category Date Time Status GALLBLADDER [US] Urgent Exams 06/01/18 08:00 Completed HIDA-GALL BLADDER [NUCMED] Urgent Exams 06/02/18 10:00 Completed - Procedures and Test Procedures and Tests throughout Hospitalization: Therapy Orders & Screens 05/31/18 05:59 Smoking Cessation Education ONCE Comment: Diagnosis: chest pain, epigastric pain and abdominal pain Smoking Status: Current every day smoker How long have you smoked: 1/2 pack Do you dip or chew tobacco: No Discharge Exam General Appearance: no apparent distress, alert, other (exam done this morning) Neurologic Exam: oriented x 3, cooperative Skin Exam: normal color, warm, dry, No rash Ears, Nose, Throat Exam: moist mucous membranes Neck Exam: normal inspection Respiratory Exam: normal breath sounds, lungs clear, No crackles/rales, No rhonchi, No wheezing Cardiovascular Exam: regular rate/rhythm, normal heart sounds, No murmur Gastrointestinal/Abdomen Exam: soft, normal bowel sounds, tenderness (mild, RUQ> RLQ), No distention, No mass, No guarding, No rebound Extremity Exam: normal inspection, No pedal edema, No swelling Final Diagnosis/Problem List - Final Discharge Diagnosis/Problem (1) Right upper quadrant abdominal pain Current Visit: Yes Status: Acute Onset Date: ~05/31/18 Assessment & Plan: Neg Gallbladder u/s and HIDA scan. Pt to see Dr. Moody Ortiz in [place], outpatient. (2) RML pneumonia Current Visit: Yes Status: Acute Assessment & Plan: Home on 7 more days of cefdinir. (3) Chest pain Current Visit: Yes Status: Resolved Onset Date: ~05/31/18 Assessment & Plan: ruled out for [place] (4) S/P gastric bypass Current Visit: Yes Status: Chronic (5) Depression Current Visit: Yes Status: Chronic - Discharge Disposition: Home, Self-Care Condition: Fair Prescriptions: New Cefdinir 300 mg PO BID #14 capsule Omeprazole 20 MG [Prilosec 20 mg] 20 mg PO DAILY #37 capsule. Continue Lorazepam 0.5 mg [Ativan 0.5 MG] 0.5 mg PO DAILY PRN PRN PRN Reason: Anxiety Fluoxetine HCl 20 mg [Prozac 20 MG] 20 mg PO DAILY Hydrocodone Bit/Acetaminophen [[place] 7.5-325 Tablet] 1 tab PO BID PRN Additional Instructions: You also have an appointment with rock crushing machine operator on 06/18/18 at 2:00 before your physician appointment. Call [phone] if you need to reschedule these appointments. Follow up with: OLIVIA ORTIZ MD [NON-STAFF PHY W/O PRIVILEGES] - 06/18/18 3:00 pm ()
[2018-06-02 19:41] VITALS: BP 124/63; PULSE 68; O2SAT 98
== END 2018-06-02 20:05 | disposition home or self-care (01) ==
LOC: ED 02:04 → MED SURG 04:57
PROVIDERS: ADMIT Family Medicine; ATTEND Family Medicine
DX: R10.11 Right upper quadrant pain (principal); J18.9 Pneumonia, unspecified organism; R07.9 Chest pain, unspecified; Z98.84 Bariatric surgery status; F32.9 Major depressive disorder, single episode, unspecified; R42 Dizziness and giddiness; R63.4 Abnormal weight loss; Z68.45 Body mass index [BMI] 70 or greater, adult; Z79.899 Other long term (current) drug therapy; Z72.0 Tobacco use
CPT/HCPCS: 36000; 36415; 71045; 74177; 76705; 78226; 80053; 82150; 83690; 84484; 85025; 85379; 85610; 85730; 93005; 93041; 93268; 96374; 96375; 99285; A9270; A9537; G0378; Q9967; J0456; J0696; J2270; J2405; J2550; J3010